=== PATIENT | female | born 1960 | race American Indian/Alaskan Native ===

== ENCOUNTER 2017-11-13 07:28 | Day surgery (SDC) | payer MEDICAID ==
[~2017-11-13 07:28] MED LIST: ANCEF/STERILE WATER 2 GM/20 ML IV NR
--- NOTE | 2017-11-13 08:37 | Anesthesia Consultation ---
Anesthesia Consult and Med Hx Date of service: 11/13/17 - Airway Anesthetic Teeth Evaluation: Poor ROM Head & Neck: Adequate Mental/Hyoid Distance: Adequate Mallampati Class: Class II Intubation Access Assessment: Probably Good - Pulmonary Exam CTA: Yes - Cardiac Exam Cardiac Exam: RRR - Pre-Operative Health Status ASA Pre-Surgery Classification: ASA3 Proposed Anesthetic Plan: General - Pulmonary Hx Smoking: Yes (1 PACK Q 3 DAYS X 1999) Hx Asthma: Yes (INHALER PRN) COPD: Yes (INHALER PRN) Hx Sleep Apnea: No (LOGAN PRE SCREEN HIGH RISK) - Cardiovascular System Hx Hypertension: No - Central Nervous System Hx Back Pain: Yes (RA) - Hematic Hx Anemia: Yes (NOT RECENT) - Other Systems Hx Cancer: No Hx Obesity: Yes - Additional Comments Anesthesia Medical History Comments: diverticulitis, severe GERD, morbid obesity
--- NOTE | 2017-11-13 08:37 | Anesthesia Day of Surgery ---
Anesthesia Day of Surgery - Day of Surgery Patient Examined: Yes Patient H&P Reviewed: Yes Patient is NPO: Yes
[2017-11-13] MEDS ORDERED: PROVENTIL IH NR (08:45)
[2017-11-13] MEDS ORDERED: NACL 0.9% 1000 ML 1,000 ML IV SCH (09:00)
[2017-11-13] MEDS ORDERED: PEPCID IV NR (09:00)
[2017-11-13] MEDS ORDERED: DIPRIVAN 10 MG/ML IV ONE (10:35)
[2017-11-13] MEDS ORDERED: DILAUDID ONE (10:42)
[2017-11-13] MEDS ORDERED: QUELICIN ONE (11:00)
[2017-11-13] MEDS ORDERED: XYLOCAINE MPF 2% ONE (11:00)
[2017-11-13] MEDS ORDERED: ZOFRAN ONE (11:00)
--- NOTE | 2017-11-13 11:25 | Short Stay Summary ---
Short Stay Documentation Date of service: 11/13/17 - History H&P: obtained from office - Allergies and Medications Current Medications: Allergies No Known Allergies Allergy (Verified 11/05/17 15:28) Home Medications Medication Instructions Recorded Confirmed Last Taken Type Albuterol Sulfate [Proventil Hfa] 2 puff IH PRN PRN 11/05/17 11/13/17 11/12/17 History HYDROcodone/APAP 5-325 [[place] 1 each PO Q6HR PRN 11/05/17 11/13/17 11/12/17 History 5/325] Invega Sustenna 1 dose IM [id number] 11/05/17 11/05/17 Unknown History Naproxen [Naprosyn] 500 mg PO BID 11/05/17 11/13/17 11/06/17 History Ranitidine HCl [Zantac 150 MG TAB] 150 mg PO QHS 11/05/17 11/05/17 Unknown History diphenhydrAMINE [Benadryl CAP] 50 mg PO QHS 11/05/17 11/13/17 11/11/17 History traMADol [Ultram] 50 mg PO Q6HR PRN 11/05/17 11/13/17 11/12/17 History Active Medications Albuterol (Proventil) 2.5 mg IH PREOP NR Stop: 11/13/17 12:30 Last Admin: 11/13/17 08:54 Dose: 2.5 mg Cefazolin Sodium (Ancef/Sterile Water 2 Gm/20 Ml) 2 gm IV PREOP NR Stop: 11/13/17 23:59 Famotidine (Pepcid) 20 mg IV PREOP NR Stop: 11/13/17 12:00 Last Admin: 11/13/17 08:54 Dose: 20 mg Hydromorphone HCl (Dilaudid) 0.25 mg IV Q10MIN PRN PRN Reason: Pain, Moderate (4-6) Stop: 11/13/17 13:00 Sodium Chloride (Nacl 0.9% 1000 Ml) 1,000 mls @ 100 mls/hr IV DIRECT ESTRELLITA Last Admin: 11/13/17 08:54 Dose: 100 mls/hr - Brief post op/procedure progress note Date of procedure: 11/13/17 Pre-op diagnosis: left renal stone Post-op diagnosis: same Procedure: eswl---- staged Anesthesia: GETA Surgeon: ALETA CARPIO Estimated blood loss: none Pathology: none Condition: stable - Hospital course Hospital course: helen mcdaniel, post op info on chart - Disposition Condition at discharge: Stable Disposition: DC-01 TO HOME OR SELFCARE Short Stay Discharge Plan Follow up with: ETTA CHANEL MD [Primary Care Provider] - 7 Days
[2017-11-13] MEDS: DILAUDID IV PRN ×2 (11:36→11:45)
--- NOTE | 2017-11-13 11:50 | Operative Report ---
PREOPERATIVE DIAGNOSIS: Left renal stone, 2 cm. POSTOPERATIVE DIAGNOSIS: Left renal stone, 2 cm. PROCEDURE: Extracorporal shock wave lithotripsy, staged procedure. SURGEON: Osito Jason MD ANESTHESIA: General. ESTIMATED BLOOD LOSS: Minimal. FLUIDS: Crystalloid. COMPLICATIONS: No complications. INDICATIONS: This patient is a 57-year-old female referred by Dr. Rendon for evaluation of kidney stone back in 2016. The patient was lost to follow up, represented. 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 She presents now for lithotripsy. Risks, benefits, and complications were explained. DESCRIPTION OF PROCEDURE: The patient was taken to the operative suite, placed in the supine position. After adequate general anesthesia, her stone was localized in 2 planes using fluoroscopy. Extracorporal shock wave lithotripsy was administered in maximum kV of 5 and 2500 shocks. Renal pause after 200 shocks for approximately 5 minutes. Some fragmentation could be appreciated due to her size (increased body mass index, also-body mass index of 55). She will go home on [employer] Follow up in the office. JOB# [id number] [facility]/HEIDI
[2017-11-13] MEDS ORDERED: ATROVENT IH ONE (11:51)
[2017-11-13] MEDS ORDERED: ATROVENT IH NR (12:39)
[2017-11-13] MEDS ORDERED: ZOFRAN IV NR (12:41)
[2017-11-13] MEDS ORDERED: NORCO 5/325 PO PRN (12:57)
--- NOTE | 2017-11-13 14:26 | Post Anesthesia Evaluation ---
- Post Anesthesia Evaluation Patient Participated: Yes Airway Patent: Yes Stable Respiratory Function: Yes Nausea/Vomiting: No Temp > 96.8F: Yes Pain Manageable: Yes Adequeate Hydration: Yes Anesthesia Complications: No
[2017-11-13] MEDS ORDERED: PROVENTIL IH SCH (16:00)
[2017-11-13 16:45] VITALS: BP 97/60
== END 2017-11-13 07:29 | disposition home or self-care (01) ==
LOC: OR 07:28
PROVIDERS: ATTEND Urology
DX: N20.0 Calculus of kidney (principal); I10 Essential (primary) hypertension; J44.9 Chronic obstructive pulmonary disease, unspecified; M06.9 Rheumatoid arthritis, unspecified; K21.9 Gastro-esophageal reflux disease without esophagitis; E66.01 Morbid (severe) obesity due to excess calories; F17.210 Nicotine dependence, cigarettes, uncomplicated; Z68.43 Body mass index [BMI] 50.0-59.9, adult
CPT/HCPCS: 50590; J0330; J0690; J1170; J2405; J2704; J7030

== ENCOUNTER 2018-12-31 05:44 | Day surgery (SDC) | payer MEDICAID ==
[2018-12-31] MEDS ORDERED: ANCEF/STERILE WATER 2 GM/20 ML IV NR (06:00)
[2018-12-31] MEDS ORDERED: NACL BACTERIOSTATIC INFILTRATI ONE (06:37)
[2018-12-31] MEDS ORDERED: LACTATED RINGERS 1,000 ML IV SCH (06:41)
[2018-12-31] MEDS ORDERED: VERSED IV ONE (06:41)
[2018-12-31] MEDS ORDERED: PEPCID IV NR (07:08)
[2018-12-31] MEDS ORDERED: TRANSDERM-SCOP TD NR (07:08)
[2018-12-31] MEDS ORDERED: PROVENTIL IH NR (07:15)
[2018-12-31] MEDS ORDERED: DIPRIVAN 10 MG/ML IV ONE (07:44)
[2018-12-31] MEDS ORDERED: SUBLIMAZE ONE (07:46)
--- NOTE | 2018-12-31 07:52 | XRay Report ---
AP ABDOMEN: HISTORY: Renal stone, preop for ESWL. The renal shadows are normal size, contour and position. There appear to be 2 left renal stones near mid pole measuring up to 1.2 cm. No obvious right nephrolithiasis or ureteral stones. Bilateral pelvic phleboliths are noted. The intestinal gas pattern is within normal limits. IMPRESSION: Left nephrolithiasis.
[2018-12-31] MEDS ORDERED: ZOFRAN IV PRN (08:28)
--- NOTE | 2018-12-31 08:28 | Anesthesia Day of Surgery ---
Anesthesia Day of Surgery - Day of Surgery Patient Examined: Yes Patient H&P Reviewed: Yes Patient is NPO: Yes
--- NOTE | 2018-12-31 08:28 | Anesthesia Consultation ---
Anesthesia Consult and Med Hx - Airway Anesthetic Teeth Evaluation: Poor ROM Head & Neck: Adequate Mental/Hyoid Distance: Adequate Mallampati Class: Class II Intubation Access Assessment: Good - Pulmonary Exam CTA: Yes - Cardiac Exam Cardiac Exam: RRR - Pre-Operative Health Status ASA Pre-Surgery Classification: ASA2 Proposed Anesthetic Plan: General - Pulmonary Hx Smoking: Yes (STOPPED X 2 MONTHS ( 08/20 PPD)) Hx Asthma: Yes (INHALER PRN) Hx Respiratory Symptoms: No (asymptomatic today) COPD: Yes Hx Sleep Apnea: No (LOGAN PRESCREEN HIGH RISK) - Cardiovascular System Hx Hypertension: No Hx Heart Attack/AMI: No Hx Percutaneous Transluminal Coronary Angioplasty (PTCA): No - Central Nervous System Hx Seizures: No CVA: No Hx Back Pain: Yes Hx Psychiatric Problems: Yes (HAD A "NERVOUS BREAKDOWN") - Gastrointestinal Hx Gastroesophageal Reflux Disease: Yes (controlled) - Endocrine Hx Renal Disease: No Hx Liver Disease: No Hx Insulin Dependent Diabetes: No Hx Thyroid Disease: No - Hematic Hx Anemia: Yes (previous hx) - Other Systems Hx Cancer: No Hx Obesity: Yes
[2018-12-31] MEDS ORDERED: XYLOCAINE MPF 2% ONE (08:41)
[2018-12-31] MEDS ORDERED: DECADRON ONE (08:41)
--- NOTE | 2018-12-31 09:07 | Short Stay Summary ---
Short Stay Documentation Date of service: 12/31/18 - History H&P: obtained from office - Allergies and Medications Current Medications: Allergies No Known Allergies Allergy (Verified 05/28/18 10:45) Home Medications Medication Instructions Recorded Confirmed Last Taken Type Albuterol Sulfate [Proventil Hfa] 2 puff IH PRN PRN 11/05/17 12/31/18 4 Months Ago History ~09/02/18 HYDROcodone/APAP 5-325 [[place] 1 each PO Q6HR PRN 11/05/17 12/18/18 11/12/17 History 5/325] Invega Sustenna 1 dose IM [id number] 11/05/17 12/18/18 Unknown History traMADol [Ultram] 50 mg PO Q6HR PRN 11/05/17 12/31/18 12/31/18 05:00 History Active Medications Albuterol (Proventil) 2.5 mg IH PREOP NR Stop: 12/31/18 23:59 Last Admin: 12/31/18 07:35 Dose: 2.5 mg Documented by: Cefazolin Sodium (Ancef/Sterile Water 2 Gm/20 Ml) 2 gm IV PREOP NR Stop: 12/31/18 23:59 Famotidine (Pepcid) 20 mg IV PREOP NR Stop: 12/31/18 23:59 Last Admin: 12/31/18 07:25 Dose: 20 mg Documented by: Hydromorphone HCl (Dilaudid) 0.5 mg IV Q10MIN PRN PRN Reason: Pain , Severe (7-10) Stop: 12/31/18 16:00 Lactated Ringer's (Lactated Ringers) 1,000 mls @ 100 mls/hr IV DIRECT ESTRELLITA Last Admin: 12/31/18 07:20 Dose: 100 mls/hr Documented by: Ondansetron HCl (Zofran) 4 mg IV ONCE PRN PRN Reason: Nausea And Vomiting Stop: 12/31/18 16:00 Scopolamine (Transderm-Scop) 1 each TD PREOP NR Stop: 01/03/19 07:07 Last Admin: 12/31/18 07:30 Dose: 1 each Documented by: - Brief post op/procedure progress note Date of procedure: 12/31/18 Pre-op diagnosis: left renal stones Post-op diagnosis: same Procedure: ESWL Anesthesia: GETAry Surgeon: ALETA CARPIO Pathology: none Condition: stable - Hospital course Hospital course: KASSIDYM, MICHAEL, POST OP INFO ON CHART - Disposition Condition at discharge: Stable Disposition: DC-01 TO HOME OR SELFCARE Short Stay Discharge Plan Follow up with: ETTA CHANEL MD [Primary Care Provider] - 7 Days
[2018-12-31] MEDS ORDERED: NORCO 5/325 PO PRN (09:25)
[2018-12-31] MEDS: DILAUDID IV PRN ×2 (09:28→10:00)
--- NOTE | 2018-12-31 09:33 | Operative Report ---
PREOPERATIVE DIAGNOSIS: Left renal calculi (aggregate 15 mm). POSTOPERATIVE DIAGNOSIS: Left renal calculi (aggregate 15 mm). PROCEDURE: Left extracorporal shock wave lithotripsy, staged procedure. SURGEON: Osito Jason MD ANESTHESIA: General. ESTIMATED BLOOD LOSS: Minimal. FLUIDS: Crystalloid. COMPLICATIONS: No complications. INDICATIONS: This patient is a 58-year-old female seen in the office with history of stones. She underwent recent CT of abdomen and pelvis in November, she was found to have multiple stones in the left kidney, approximately 15 mm total aggregate. Due to her persistent pain, she agreed to proceed with surgical intervention. DESCRIPTION OF PROCEDURE: The patient was taken to the operative suite, placed in a supine position. After adequate general anesthesia, the stone closest to the renal pelvis was identified. Extracorporal shock wave lithotripsy was administered with a maximum kV of 8 and 2500 shocks. Five-minute renal pause after 200 shocks was performed. Adequate fragmentation could be appreciated. She tolerated the procedure well. She was extubated and taken to recovery room. She will go home on [facility] [place] and follow up in the office. JOB# [id number] [facility]/HEIDI
--- NOTE | 2018-12-31 10:08 | Post Anesthesia Evaluation ---
- Post Anesthesia Evaluation Patient Participated: Yes Airway Patent: Yes Stable Respiratory Function: Yes Nausea/Vomiting: No Temp > 96.8F: Yes Adequeate Hydration: Yes Anesthesia Complications: No Block Receding Appropriately: Not Applicable Patient on Ventilator: No
[2018-12-31 10:22] VITALS: BP 128/82
== END 2018-12-31 10:59 | disposition home or self-care (01) ==
LOC: OR 05:44
PROVIDERS: ATTEND Urology
DX: N20.0 Calculus of kidney (principal); N39.46 Mixed incontinence; I10 Essential (primary) hypertension; J44.9 Chronic obstructive pulmonary disease, unspecified; K21.9 Gastro-esophageal reflux disease without esophagitis; M19.90 Unspecified osteoarthritis, unspecified site; E66.9 Obesity, unspecified; Z68.43 Body mass index [BMI] 50.0-59.9, adult; Z90.49 Acquired absence of other specified parts of digestive tract; Z98.891 History of uterine scar from previous surgery; Z98.890 Other specified postprocedural states; Z79.899 Other long term (current) drug therapy; Z87.891 Personal history of nicotine dependence; Z86.2 Personal history of diseases of the blood and blood-forming organs and certain disorders involving the immune mechanism
CPT/HCPCS: 50590; 74018; J0690; J1100; J1170; J2250; J2405; J2704; J3010; J7120